=== PATIENT | male | born 1985 | race Caucasian/White ===

== ENCOUNTER 2019-06-11 09:48 | Emergency (ER) | payer OTHER ==
[~2019-06-11] VITALS: Ht 182.9 cm; Wt 91.2 kg
[2019-06-11 09:58] VITALS: BP 106/75
[2019-06-11 11:08] VITALS: BP 108/72
== END 2019-06-11 11:08 | disposition home or self-care (01) ==
LOC: MED 09:48
DX: M70.32 Other bursitis of elbow, left elbow (principal); Z88.0 Allergy status to penicillin; Z88.1 Allergy status to other antibiotic agents
CPT/HCPCS: 99283